=== PATIENT | male | born 1985 | race Two or more races ===

== ENCOUNTER 2023-07-10 02:18 | Emergency (ER) | payer OTHER ==
[~2023-07-10] VITALS: Ht 170.2 cm; Wt 99.8 kg
[2023-07-10 08:50] LABS: HEMATOCRIT 47.4 % (39.0-48.0); HEMOGLOBIN 16.3 g/dL (13-16.00); MEAN CELL VOLUME 86.3 fL (80.0-100.00); MEAN CORPUSCULAR HEMOGLOBIN 29.6 pg (27.00-32.0); MEAN CORPUSCULAR HGB CONC 34.3 g/dl (32.0-36.0); PLATELET COUNT 304 K/uL (150-450); RED BLOOD COUNT 5.49 M/uL (4.00-6.00); RED CELL DISTRIBUTION WIDTH 13.1 % (11.5-14.5)
[2023-07-10 09:24] LABS: ALBUMIN 4.5 gm/dL (3.4-5.0); BILIRUBIN TOTAL 0.63 mg/dL (0.3-1.2); CALCIUM 9.6 mg/dL (8.5-10.1); CREATININE SERUM 0.89 mg/dL (0.70-1.30); GFR 97.27; GLOBULINA 3.3 G/DL (2.4-3.5); POTASSIUM 4.68 mEq/L (3.5-5.1); TOTAL PROTEIN 7.8 gm/dL (6.4-8.2)
[2023-07-10] MEDS ORDERED: ZYRTEC10 M3 PO (11:46)
[2023-07-10] MEDS ORDERED: FLONASE ALLERG9.9 ML NASAL (11:46)
== END 2023-07-10 12:05 | disposition home or self-care (01) ==
LOC: ER 02:18
PROVIDERS: Emergency Medicine
DX: R53.83 Other fatigue (principal); Z20.822 Contact with and (suspected) exposure to COVID-19